=== PATIENT | female | born 1980 | race Caucasian/White ===

== ENCOUNTER 2017-02-01 13:17 | Emergency (ER) | payer SELFPAY ==
[~2017-02-01] VITALS: Ht 165.1 cm; Wt 127.1 kg
[~2017-02-01 13:17] MED LIST: ATARAX,VISTARIL25 MG PO; CLONIDINE HCL0.1 MG PO; CLONIDINE HCL0.2 MG PO; EFFEXOR75 MG PO; GABAPENTIN300 MG PO; GABAPENTIN400 MG PO; NALTREXONE HCL50 MG PO; PRAZOSIN HCL2 MG PO; PRILOSEC40 MG PO; QUETIAPINE FUMA50 MG PO; STRATTERA80 MG PO; SUBOXONE 4 MG-1 EACH SL; VENLAFAXINE HCL75 MG PO; VENTOLIN HFA18 GM IH; ZANTAC150 MG PO; ZOFRAN ODT4 MG PO
[2017-02-01] MEDS ORDERED: PREDNISONE50 MG PO (14:46)
[2017-02-01] MEDS ORDERED: MOTRIN600 MG PO (14:46)
[2017-02-01] MEDS ORDERED: TRAMADOL HCL50 MG PO (14:46)
[2017-02-01 15:24] VITALS: BP 133/89
== END 2017-02-01 15:25 | disposition home or self-care (01) ==
LOC: EME 13:17
DX: M54.16 Radiculopathy, lumbar region (principal)
CPT/HCPCS: 99281; 99284

== ENCOUNTER 2017-02-18 14:27 | Emergency (ER) | payer OTHER ==
[~2017-02-18] VITALS: Ht 165.1 cm; Wt 113.0 kg
[~2017-02-18 14:27] MED LIST changes: +MOTRIN600 MG PO; +PREDNISONE50 MG PO; +TRAMADOL HCL50 MG PO
[2017-02-18] MEDS ORDERED: NAPROSYN500 MG PO (16:08)
[2017-02-18] MEDS ORDERED: FLEXERIL10 MG PO (16:08)
[2017-02-18 16:18] VITALS: BP 132/84
== END 2017-02-18 16:18 | disposition home or self-care (01) ==
LOC: EME 14:27
DX: M25.511 Pain in right shoulder (principal); M54.5 Low back pain; G89.11 Acute pain due to trauma; W10.9XXA Fall (on) (from) unspecified stairs and steps, initial encounter; F17.200 Nicotine dependence, unspecified, uncomplicated
CPT/HCPCS: 99281; 99283